=== PATIENT | female | born 1955 ===

== ENCOUNTER 2020-08-19 09:15 | Inpatient (IN) | payer OTHER ==
[~2020-08-19] VITALS: Ht 157.5 cm; Wt 73.9 kg
[2020-08-20] MEDS ORDERED: LOSART PO (07:35)
[2020-08-20] MEDS ORDERED: METFORMIN PO (07:35)
[2020-08-20] MEDS ORDERED: LIPITO PO (07:35)
[2020-08-22] MEDS ORDERED: METFORMIN HCL500 M4 (16:34)
[2020-08-22] MEDS ORDERED: ATORVASTATIN CA10 MG (16:34)
[2020-08-22] MEDS ORDERED: ST. JOSEPH ASPI81 M2 (16:34)
[2020-08-22] MEDS ORDERED: LOSARTAN POTAS100 MG (16:34)
[2020-08-27] MEDS ORDERED: PERCOCET 5-3251 EACH PO (09:10)
[2020-08-27] MEDS ORDERED: PRILOSEC OTC20 MG PO (09:10)
== END 2020-08-27 11:39 | disposition home or self-care (01) | DRG 331 ==
LOC: SEC-K 08-22 10:56 → SURG 08-22 17:29 → SURH 08-23 07:00 → SURG 08-27 11:39
PROVIDERS: ADMIT Surgery; ATTEND Surgery
PROC: 30233N1 Transfusion of Nonautologous Red Blood Cells into Peripheral Vein, Percutaneous Approach (ICD-10-PCS; principal; 2020-08-22)
PROC: 3E0F7SF Introduction of Other Gas into Respiratory Tract, Via Natural or Artificial Opening (ICD-10-PCS; 2020-08-22)
PROC: 0DBK4ZZ Excision of Ascending Colon, Percutaneous Endoscopic Approach (ICD-10-PCS; 2020-08-23)
PROC: 07BB4ZX Excision of Mesenteric Lymphatic, Percutaneous Endoscopic Approach, Diagnostic (ICD-10-PCS; 2020-08-23)
PROC: 0DBU4ZZ Excision of Omentum, Percutaneous Endoscopic Approach (ICD-10-PCS; 2020-08-23)
DX: C18.2 Malignant neoplasm of ascending colon (principal); R59.0 Localized enlarged lymph nodes; D64.89 Other specified anemias; M62.838 Other muscle spasm; I10 Essential (primary) hypertension; E11.9 Type 2 diabetes mellitus without complications; Z79.4 Long term (current) use of insulin

== ENCOUNTER 2024-02-08 12:00 | Inpatient (IN) | payer OTHER ==
[~2024-02-08] VITALS: Ht 154.9 cm; Wt 68.0 kg
[~2024-02-08 12:00] MED LIST: ATORVASTATIN CA10 MG; LIPITO PO; LOSART PO; LOSARTAN POTAS100 MG; METFORMIN HCL500 M4; METFORMIN PO; PERCOCET 5-3251 EACH PO; PRILOSEC OTC20 MG PO; ST. JOSEPH ASPI81 M2
[2024-02-08] MEDS ORDERED: CRESTOR (13:23)
[2024-02-08] MEDS ORDERED: [UNRECOGNIZED DRUG - OTHER] (13:23)
[2024-02-15] MEDS ORDERED: BUPIVACAINE HCL 30 ML VIAL IJ ONE (08:30)
[2024-02-15] MEDS ORDERED: METRONIDAZOLE/SODIUM CHLORIDE 500 MG/100 ML PIGGYBACK IV SCH (08:30)
[2024-02-15] MEDS ORDERED: CEFTRIAXONE SODIUM 2,000 MG VIAL IV SCH (08:30)
[2024-02-15] MEDS ORDERED: LIDOCAINE HCL 1%/EPINEPHRINE 20ML VIAL IJ ONE (08:30)
[2024-02-15] MEDS ORDERED: RINGERS SOLUTION,LACTATED 1,000 ML IV SCH (09:15)
[2024-02-15] MEDS ORDERED: DEXTROSE 50 % IN WATER 0.5 G/ML DISP.SYRIN IV PRN ×2 (09:15→20:30)
[2024-02-15] MEDS ORDERED: OxyCODONE HCL 5 MG TABLET (ROXICODONE) PO PRN (09:15)
[2024-02-15] MEDS ORDERED: MORPHINE SULFATE 4 MG/ML CARTRIDGE IV PRN (09:15)
[2024-02-15] MEDS ORDERED: ONDANSETRON HCL 2 MG/ML VIAL IV PRN (09:15)
[2024-02-15] MEDS ORDERED: MORPHINE SULFATE 4 MG/ML VIAL IV ONE ×2 (10:10→10:40)
[2024-02-15] MEDS ORDERED: ONDANSETRON HCL 2 MG/ML VIAL IV ONE (10:10)
[2024-02-15 12:53] LABS: HEMATOCRIT 41.6 % (36.0-45.00); HEMOGLOBIN 14.3 g/dL (12.0-15.00); MEAN CELL VOLUME 88.2 fL (80.00-100.00); MEAN CORPUSCULAR HEMOGLOBIN 30.3 pg (27.00-32.0); MEAN CORPUSCULAR HGB CONC 34.3 g/dl (32.0-36.0); PLATELET COUNT 176 K/uL (150-450); RED BLOOD COUNT 4.72 M/uL (4.00-6.00); RED CELL DISTRIBUTION WIDTH 14.3 % (11.5-14.5)
[2024-02-15 13:00] VITALS: BP 127/78; O2SAT 99
[2024-02-15] MEDS ORDERED: HYOSCYAMINE SULFATE 0.125 MG TAB.SUBL SL SCH (13:00)
[2024-02-15 13:41] LABS: ALBUMIN 3.6 gm/dL (3.4-5.0); CALCIUM 9.2 mg/dL (8.5-10.1); CREATININE SERUM 0.92 mg/dL (0.55-1.02); GFR 60.35; MAGNESIUM 1.7 mg/dL (1.8-2.4); PHOSPHOROUS 3.8 mg/dL (2.5-4.9); POTASSIUM 4.47 mEq/L (3.5-5.1)
[2024-02-15] MEDS ORDERED: ACETAMINOPHEN 500 MG GEL..CAP PO SCH (14:00)
[2024-02-15 15:47] VITALS: BP 125/70; O2SAT 96
[2024-02-15] MEDS ORDERED: GABAPENTIN 300 MG CAPSULE PO SCH (17:00)
[2024-02-15] MEDS ORDERED: INSULIN LISPRO 1,000 UNIT/10 ML UNITS SUBCUTANEO PRN (20:30)
[2024-02-15] MEDS ORDERED: FAMOTIDINE/PF 20 MG/2 ML VIAL IV PUSH SCH (21:00)
[2024-02-16 00:20] VITALS: BP 112/57; O2SAT 96
[2024-02-16 07:20] LABS: HEMATOCRIT 36.3 % (36.0-45.00); HEMOGLOBIN 12.8 g/dL (12.0-15.00); MEAN CELL VOLUME 87.7 fL (80.00-100.00); MEAN CORPUSCULAR HEMOGLOBIN 30.9 pg (27.00-32.0); MEAN CORPUSCULAR HGB CONC 35.2 g/dl (32.0-36.0); PLATELET COUNT 120 K/uL (150-450); RED BLOOD COUNT 4.13 M/uL (4.00-6.00); RED CELL DISTRIBUTION WIDTH 14.1 % (11.5-14.5)
[2024-02-16 07:53] VITALS: BP 139/65; O2SAT 98
[2024-02-16 07:56] LABS: ALBUMIN 2.5 gm/dL (3.4-5.0); CALCIUM 8.3 mg/dL (8.5-10.1); CREATININE SERUM 0.69 mg/dL (0.55-1.02); GFR 84.11; MAGNESIUM 1.5 mg/dL (1.8-2.4); PHOSPHOROUS 2.2 mg/dL (2.5-4.9); POTASSIUM 4.26 mEq/L (3.5-5.1)
[2024-02-16] MEDS ORDERED: LOSARTAN POTASSIUM 100 MG TABLET PO SCH (09:00)
[2024-02-16] MEDS ORDERED: LACTULOSE 20 G/30 ML BLIST.PACK PO SCH (09:00)
[2024-02-16] MEDS ORDERED: MAGNESIUM SULFATE IN WATER 4 GM/100 ML PIGGYBACK IV NR (14:00)
[2024-02-16 16:00] VITALS: BP 121/58; O2SAT 99
[2024-02-16] MEDS ORDERED: POTASSIUM PHOS,M-BASIC-D-BASIC 15 MM in 0.9 % SODIUM CHLORIDE 250 ML IV ONE (17:00)
[2024-02-16] MEDS ORDERED: ENOXAPARIN SODIUM 40 MG/0.4 ML SYRINGE SUBCUTANEO SCH (17:00)
[2024-02-17 00:27] VITALS: BP 117/67; O2SAT 95
[2024-02-17 07:20] LABS: HEMATOCRIT 37.2 % (36.0-45.00); HEMOGLOBIN 13.1 g/dL (12.0-15.00); MEAN CORPUSCULAR HEMOGLOBIN 31.1 pg (27.00-32.0); MEAN CORPUSCULAR HGB CONC 35.3 g/dl (32.0-36.0); PLATELET COUNT 115 K/uL (150-450); RED BLOOD COUNT 4.23 M/uL (4.00-6.00); RED CELL DISTRIBUTION WIDTH 13.9 % (11.5-14.5)
[2024-02-17 08:00] VITALS: BP 128/68; O2SAT 97
[2024-02-17] MEDS ORDERED: MetFORMIN HCL 1000 MG TABLET PO SCH (09:00)
[2024-02-17] MEDS ORDERED: JARDIANCE 25 MG PO SCH (09:00)
[2024-02-17] MEDS ORDERED: ENOXAPARIN SODIUM 40 MG/0.4 ML SYRINGE SUBCUTANEO SCH (09:00)
[2024-02-17 16:17] VITALS: BP 130/78; O2SAT 96
[2024-02-17] MEDS ORDERED: HYDROCORTISONE 2.5% 30 GM TUBE RECTAL SCH (17:00)
[2024-02-18 00:12] VITALS: BP 120/60; O2SAT 97
[2024-02-18] MEDS ORDERED: HYDROCORTISONE 2.5% 30 GM TUBE RECTAL SCH (09:00)
[2024-02-18 09:52] VITALS: BP 155/74; O2SAT 98
[2024-02-18] MEDS ORDERED: A/F PAIN RELIE500 MG PO (10:45)
[2024-02-18] MEDS ORDERED: INTESTINEX680 M1 PO (10:45)
[2024-02-18] MEDS ORDERED: NEURONTIN300 MG PO (10:45)
== END 2024-02-18 12:32 | disposition home or self-care (01) | DRG 330 ==
LOC: O/R 02-15 05:30 → SURH 02-15 07:00 → SURG 02-15 10:39 → SURH 02-15 12:00 → SURG 02-18 12:32
PROVIDERS: ADMIT Surgery; ATTEND Surgery
PROC: 0DBP4ZZ Excision of Rectum, Percutaneous Endoscopic Approach (ICD-10-PCS; 2024-02-15)
PROC: 07BC4ZX Excision of Pelvis Lymphatic, Percutaneous Endoscopic Approach, Diagnostic (ICD-10-PCS; 2024-02-15)
PROC: 0DTN4ZZ Resection of Sigmoid Colon, Percutaneous Endoscopic Approach (ICD-10-PCS; principal; 2024-02-15 07:00)
DX: C18.2 Malignant neoplasm of ascending colon (principal); C19 Malignant neoplasm of rectosigmoid junction; K92.1 Melena; R59.0 Localized enlarged lymph nodes